=== PATIENT | male | born 1955 | race Caucasian/White ===

== ENCOUNTER 2021-05-06 06:17 | Day surgery (SDC) | payer MEDICARE ==
[~2021-05-06] VITALS: Ht 172.7 cm; Wt 93.6 kg
[2021-05-06] MEDS ORDERED: ASPIR 8181 M1 PO (06:46)
[2021-05-06] MEDS ORDERED: RAMI5 PO (06:47)
[2021-05-06] MEDS ORDERED: METO50 PO (06:47)
--- NOTE | 2021-05-06 08:08 | NUR ---
05/06/21 0808 David Bean 49 MLS OF SHOULDER COCKTAIL INJECTED AT OPSITE BY DR ASHFORD FOR PAIN CONTROL.
--- NOTE | 2021-05-06 11:06 | NUR ---
05/06/21 1106 WALTER YA PAIN NOW 01/12. EATING AND DRINKING. DENIES NAUSEA. POLAR PACK ON. SLING IN PLACE.
== END 2021-05-06 12:10 | disposition home or self-care (01) ==
LOC: ORSCSDS 06:17
DX: M75.41 Impingement syndrome of right shoulder (principal); M75.121 Complete rotator cuff tear or rupture of right shoulder, not specified as traumatic; M75.21 Bicipital tendinitis, right shoulder; I10 Essential (primary) hypertension; E78.00 Pure hypercholesterolemia, unspecified; I25.2 Old myocardial infarction; Z87.891 Personal history of nicotine dependence; Z79.82 Long term (current) use of aspirin; Z79.899 Other long term (current) drug therapy
CPT/HCPCS: A9270; C1713; J0171; J0330; J0690; J0735; J1100; J1885; J2250; J2405; J2704; J2710; J2765; J2795; J3010; J7120

== ENCOUNTER → 2024-07-28 | Outpatient (CLI) | payer MEDICARE ==
[~2024-07-28] MED LIST: ASPIR 8181 M1 PO; METO50 PO; RAMI5 PO
[2024-07-28 13:49] LABS: Microalb/Creat Ratio UR, Rand 28.293 mg/g (0.000-30.000); Microalbumin, Random Urine 34.8 mg/L (0.000-20.000)
== END ==
LOC: LAB 11:10 → LAB SHORT 11:10
PROVIDERS: Family Medicine
DX: I10 Essential (primary) hypertension (principal)
CPT/HCPCS: 82043; 82570

== ENCOUNTER 2024-10-04 12:02 | Day surgery (SDC) | payer MEDICARE ==
[~2024-10-04] VITALS: Ht 172.7 cm; Wt 83.3 kg
[~2024-10-04 12:02] MED LIST changes: +ATOR80 PO; +Atropine Sulfate 0.1 MG/ML 10ML SYR ONE; +C COMPLEX1000 M1; +Glycopyrrolate 0.2 MG/ML 1MLVIAL ONE; +Lactated Ringer's 1,000 ML IV ONE; +Lidocaine 2% 5 ML SDV ONE; +Lidocaine HCl/Pf 1% 5 ML VIAL ONE; +Methylene Blue 1% 100 MG/10 ML VIAL ONE; +Ondansetron HCl 2 MG / ML 2ML Vial ONE; +VITAMIN D325 MC3 PO; +ePHEDrine Sulfate 50 MG/ML 1ML Injection ONE; +propofoL 50 ML IV ONE
[2024-10-04] MEDS ORDERED: Lactated Ringer's 1,000 ML IV ONE (13:51)
[2024-10-04 15:19] VITALS: BP 152/78
== END 2024-10-04 15:34 | disposition home or self-care (01) ==
LOC: ORSCSDS 12:02
PROVIDERS: Surgery
PROC: 0DBL8ZX Excision of Transverse Colon, Via Natural or Artificial Opening Endoscopic, Diagnostic (ICD-10-PCS; principal; 2024-10-04 13:30)
PROC: 0DBN8ZX Excision of Sigmoid Colon, Via Natural or Artificial Opening Endoscopic, Diagnostic (ICD-10-PCS; principal; 2024-10-04 13:30)
PROC: 0DBH8ZX Excision of Cecum, Via Natural or Artificial Opening Endoscopic, Diagnostic (ICD-10-PCS; principal; 2024-10-04 13:30)
PROC: 0DBP8ZX Excision of Rectum, Via Natural or Artificial Opening Endoscopic, Diagnostic (ICD-10-PCS; principal; 2024-10-04 13:30)
DX: Z12.11 Encounter for screening for malignant neoplasm of colon (principal); Z86.0100 Personal history of colon polyps, unspecified; D12.0 Benign neoplasm of cecum; K63.5 Polyp of colon; D12.5 Benign neoplasm of sigmoid colon; K62.5 Hemorrhage of anus and rectum; K62.1 Rectal polyp; K57.30 Diverticulosis of large intestine without perforation or abscess without bleeding; K64.2 Third degree hemorrhoids; I10 Essential (primary) hypertension; Z79.899 Other long term (current) drug therapy; Z79.82 Long term (current) use of aspirin
CPT/HCPCS: 82947; 88305; J0461; J2003; J2405; J2704; J7120; Q9968